=== PATIENT | female | born 1985 | race American Indian/Alaskan Native ===

== ENCOUNTER 2021-12-30 01:27 | Emergency (ER) | payer OTHER ==
--- NOTE | 2021-12-30 05:15 | Event Note ---
Date: 12/30/21 The patient was evaluated in the emergency department for symptoms described in the history of present illness. He/she was evaluated in the context of the global COVID-19 pandemic, which necessitated consideration that the patient might be at risk for infection with the virus that causes COVID-19. Institutional protocols and algorithms that pertain to the evaluation of patients at risk for COVID-19 are in a state of rapid change based on information released by regulatory bodies including the CDC and federal and state organizations. These policies and algorithms were followed during the patient's care in the emergency department. Please note that these policies, procedures and recommendations changed on a rapid basis. Medical screening examination note: 36-year-old female, who is 1, para 0, reports being 12 weeks , reports that this is her first lifetime , reports that she follows with Dr. Libia Guerrier, also reports having had an ultrasound yesterday which confirmed intrauterine , presenting to the department today with complaint of nonspecific chest tightness, and lower extremity swelling as well as mild shortness of breath. Placed patient on diagnostic cardiac sonographer, obtain EKG, laboratory studies. Oncoming ER provider to perform detailed history and physical examination. On my assessment, the patient is resting comfortably in stretcher, and has obvious lower extremity edema. She is protecting her airway, hemodynamically stable, and in no acute distress Vital Signs 12/30/21 01:42 Temperature 98.4 F Pulse Rate 95 H Respiratory 18 Rate Blood Pressure 147/76 O2 Sat by Pulse 98 Oximetry
[2021-12-30 05:45] LABS: Basophils % (Auto) 0.2 % (0.0-1.8); Eosinophils % (Auto) 0.2 % (0.0-4.3); Hematocrit 32.6 % (30.3-42.9); Hemoglobin 10.2 gm/dl (10.1-14.3); Lymphocytes % (Auto) 17.7 % (13.4-35.0); Mean Corpuscular HGB Conc 31 % (30-34); Mean Corpuscular Volume 79 fl (79-97); Monocytes # (Auto) 0.8 K/mm3 (0.0-0.8); Platelet Count 167 K/mm3 (140-440); Red Blood Count 4.15 M/mm3 (3.65-5.03); Red Cell Distribution Width 18.5 % (13.2-15.2)
[2021-12-30 05:54] LABS: INR 0.99 (0.87-1.13)
[2021-12-30 06:09] LABS: Alanine Aminotransferase 13 units/L (7-56); Albumin 3.4 g/dL (3.9-5); Blood Urea Nitrogen 7 mg/dL (7-17); Calcium 9.4 mg/dL (8.4-10.2); Hemolysis Index 2
[2021-12-30 06:10] LABS: BUN/Creatinine Ratio 14
--- NOTE | 2021-12-30 07:15 | XRay Report ---
CHEST 1 VIEW INDICATION / CLINICAL INFORMATION: pain. COMPARISON: Chest x-ray 01/04/2009 FINDINGS: SUPPORT DEVICES: None. HEART / MEDIASTINUM: Heart size is within normal limits. Mediastinal contour demonstrates no signific ant abnormality. LUNGS / PLEURA: No significant pulmonary abnormality. BONES: No significant osseous abnormality. ADDITIONAL FINDINGS: No significant additional findings. IMPRESSION: 1. No active cardiopulmonary disease. Signer Name: Ze Kimbrough II, MD Signed: 12/30/2021 7:11 AM Workstation Name: [id number]
[2021-12-30 08:00] VITALS: BP 129/73
--- NOTE | 2021-12-30 10:01 | Emergency Department Report ---
ED General Adult HPI - General Chief complaint: Chest Pain Stated complaint: CHEST PAINS/SOB PUI?: No Time Seen by Provider: 12/30/21 06:17 Source: patient Mode of arrival: Ambulatory Limitations: No Limitations - History of Present Illness Initial comments: STERNAL CHEST PAIN X 6-7 HRS,WORSE WHEN LYING DOWN. REPORTS THAT SHE IS 12 WEEKS , , -: Gradual, hour(s) Location: chest, back Radiation: back Severity scale (0 -10): 0 Quality: burning Consistency: intermittent Improves with: none Associated Symptoms: denies: denies other symptoms, confusion, chest pain, cough - Related Data Previous Rx's Medication Instructions Recorded Last Taken Type Mag Hydrox/Aluminum Hyd/Simeth 355 ml PO DAILY PRN #1 12/30/21 Unknown Rx [Mylanta Maximum Strength Liq] Promethazine [Phenergan] 25 mg PO Q6HR PRN #10 tab 12/30/21 Unknown Rx Allergies Allergy/AdvReac Type Severity Reaction Status Date / Time sulfamethoxazole Allergy Unknown Verified 12/30/21 02:42 [From Bactrim] trimethoprim [From Bactrim] Allergy Unknown Verified 12/30/21 02:42 ED Review of Systems ROS: Stated complaint: CHEST PAINS/SOB Other details as noted in HPI Constitutional: denies: chills, fever Eyes: denies: eye pain, eye discharge, vision change ENT: denies: ear pain, throat pain Respiratory: denies: cough, shortness of breath, wheezing Cardiovascular: denies: chest pain, palpitations Endocrine: no symptoms reported Gastrointestinal: denies: abdominal pain, nausea, diarrhea Genitourinary: denies: urgency, dysuria, discharge Musculoskeletal: denies: back pain, joint swelling, arthralgia Skin: denies: rash, lesions Neurological: denies: headache, weakness, paresthesias Psychiatric: denies: anxiety, depression Hematological/Lymphatic: denies: easy bleeding, easy bruising ED Past Medical Hx - Past Medical History Previous Medical History?: No Hx Hypertension: No Hx CVA: No - Social History Smoking Status: Never Smoker - Medications Home Medications: Home Medications Medication Instructions Recorded Confirmed Last Taken Type Mag Hydrox/Aluminum Hyd/Simeth 355 ml PO DAILY PRN #1 12/30/21 Unknown Rx [Mylanta Maximum Strength Liq] Promethazine [Phenergan] 25 mg PO Q6HR PRN #10 tab 12/30/21 Unknown Rx ED Physical Exam - General Limitations: No Limitations General appearance: alert, in no apparent distress - Head Head exam: Present: atraumatic, normocephalic - Eye Eye exam: Present: normal appearance - ENT ENT exam: Present: mucous membranes moist - Neck Neck exam: Present: normal inspection - Respiratory Respiratory exam: Present: normal lung sounds bilaterally. Absent: respiratory distress - Cardiovascular Cardiovascular Exam: Present: regular rate, normal rhythm. Absent: systolic murmur, diastolic murmur, rubs, gallop - GI/Abdominal GI/Abdominal exam: Present: soft, normal bowel sounds - Extremities Exam Extremities exam: Present: normal inspection - Back Exam Back exam: Present: normal inspection - Neurological Exam Neurological exam: Present: alert, oriented X3 - Psychiatric Psychiatric exam: Present: normal affect, normal mood - Skin Skin exam: Present: warm, dry, intact, normal color. Absent: rash ED Course Vital Signs 12/30/21 12/30/21 12/30/21 01:42 06:28 07:59 Temperature 98.4 F Pulse Rate 95 H 79 Respiratory 18 18 Rate Blood Pressure 147/76 Blood Pressure 129/73 [Left] O2 Sat by Pulse 98 99 97 Oximetry ED Medical Decision Making - Lab Data Result diagrams: 12/30/21 05:26 12/30/21 05:26 - EKG Data -: EKG Interpreted by Nv EKG shows normal: sinus rhythm Rate: normal - EKG Data Interpretation: no acute changes - Radiology Data Radiology results: report reviewed, image reviewed - Medical Decision Making work up negative repeat trop negative , vss no distress Critical care attestation.: If time is entered above; I have spent that time in minutes in the direct care of this critically ill patient, excluding procedure time. ED Disposition Clinical Impression: Chest pain, GERD (gastroesophageal reflux disease) Disposition: 01 HOME / SELF CARE / HOMELESS Is pt being admited?: No Does the pt Need Aspirin: No Condition: Stable Instructions: Nonspecific Chest Pain, Adult Referrals: MAGAN BUSCH [Other] - 3-5 Days
--- NOTE | 2021-12-30 14:10 | Electrocardiograph Report ---
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
== END 2021-12-30 10:37 | disposition home or self-care (01) ==
LOC: ED 01:27
DX: R07.9 Chest pain, unspecified (principal); K21.9 Gastro-esophageal reflux disease without esophagitis; Z91.09 Other allergy status, other than to drugs and biological substances
CPT/HCPCS: 36415; 71045; 80053; 83735; 83880; 84484; 84702; 85025; 85610; 93005; 99284